=== PATIENT | female | born 1950 | race Caucasian/White ===

== ENCOUNTER → 2023-11-25 09:58 | Outpatient (REF) | payer BC, MEDICARE, SELFPAY ==
[2023-11-25 11:09] LABS: Urine Albumin Negative (Neg - Trace); Urine Bilirubin Negative (Negative); Urine Character Clear (Clear); Urine Color Straw; Urine Glucose Negative (Negative); Urine Ketone Negative (Negative); Urine Leukocyte 1+ (Negative); Urine Nitrite Negative (Negative); Urine Occult Blood Negative (Negative); Urine Urobilinogen Negative (Neg - 1+)
[2023-11-25 11:26] LABS: Urine Bacteria Few (Negative); Urine Red Blood Cell 0-2 /HPF (0-2); Urine Squamous Cell 21-25 /LPF (Few)
[2023-11-25 11:35] LABS: ALT (SGPT) 19 U/L (0-35); AST (SGOT) 27 U/L (14-36); Albumin 4.1 g/dl (3.5-5.0); Alkaline Phosphatase 51 U/L (38-126); Blood Urea Nitrogen 19 mg/dl (7-17); Calcium 9.2 mg/dl (8.4-10.2); Carbon Dioxide 28 mmol/L (22-30); Chloride 101 mmol/L (98-107); Glucose 95 mg/dl (70-99); HDL Cholesterol 78 mg/dl; LDL Cholesterol, Calculated 82 mg/dl; Potassium 4.6 mmol/L (3.5-5.1); Sodium 135 mmol/L (135-145); Total Bilirubin 0.7 mg/dl (0.2-1.3); Total Cholesterol 173 mg/dl (50-199); Total Protein 6.2 g/dl (6.3-8.2); Triglyceride 67 mg/dl (10-149); Very Low Density Lipoprotein 13 mg/dl (0-30); eGFR > 60.00
[2023-11-25 13:07] LABS: % Basophils 0.9 % (0-2); % Eosinophils 3.2 % (0-6); % Immature Granulocytes 0.5 % (0-0.5); % Lymphocytes 26.5 % (20.5-51.1); % Monocytes 13.6 % (1.7-9.3); % Neutrophils 55.3 % (42.2-75.2); Absolute Eosinophils 0.1 10^3/uL (0-0.7); Absolute Lymphocytes 1.2 10^3/uL (1.2-3.4); Absolute Monocytes 0.6 10^3/uL (0.1-0.6); Absolute Neutrophils 2.4 10^3/uL (1.4-6.5); Hematocrit 39.2 % (37.0-47.0); Hemoglobin 13.4 g/dL (12.0-16.0); Mean Corp Hgb Conc. 34.2 g/dL (33.0-37.0); Mean Corpuscular Hgb 32.5 pg (27.0-31.0); Mean Corpuscular Volume 95.1 fL (81.0-99.0); Mean Platelet Volume 10.1 fL (7.4-10.4); Nucleated Red Blood Cells % 0 %; Platelet Count 222 10^3/uL (130-400); Red Blood Cell Count 4.12 10^6/uL (4.20-5.40); Red Cell Dist. Width 12.4 % (11.5-14.5); White Blood Cell Count 4.3 10^3/uL (4.8-10.8)
== END ==
LOC: REG 09:58
PROVIDERS: ATTENDING PHYSICIAN Internal Medicine
DX: I10 Essential (primary) hypertension (principal); E78.00 Pure hypercholesterolemia, unspecified
CPT/HCPCS: 36415; 80053; 80061; 81003; 81015; 85025

== ENCOUNTER → 2024-04-25 10:40 | Outpatient (REF) | payer BC, MEDICARE, SELFPAY | LOC: WDC 10:40 | PROVIDERS: ATTENDING PHYSICIAN Obstetrics & Gynecology; FAMILY PHYSICIAN Internal Medicine | DX: Z12.31 Encounter for screening mammogram for malignant neoplasm of breast (principal) | CPT/HCPCS: 77063; 77067 ==

== ENCOUNTER → 2024-05-04 08:59 | Outpatient (REF) | payer MEDICARE, BC, SELFPAY | LOC: WDC 08:59 | PROVIDERS: ATTENDING PHYSICIAN Obstetrics & Gynecology; FAMILY PHYSICIAN Internal Medicine | DX: R92.8 Other abnormal and inconclusive findings on diagnostic imaging of breast (principal) | CPT/HCPCS: 76642 ==

== ENCOUNTER 2024-11-07 13:53 | Emergency (ER) | payer MEDICARE, SELFPAY ==
[2024-11-07 13:56] VITALS: BP 137/85
--- NOTE | 2024-11-07 16:45 | ED.MUSCINJ ---
HPI-Injury
General
Chief Complaint: Fall
Source: patient
Exam Limitations: none
Time Seen by Provider: 11/07/24 15:39
Nursing documentation reviewed up to this point in time: agreed with
History of Present Illness-Injury
Initial Injury comments:
73-year-old female with history of HTN, HLD presents with left rib pain after a fall yesterday. She states she was showing a house and missed a step down, 1 step and slammed the left side of her ribs into a doorknob, she did not fall. She has had
significant pain in the area since
She had a recent cough and finished 5 days of azithromycin 5 days ago and she still has some residual cough obviously causing significant pain
Past History
Past History
ED Past Medical History: Cancer (Skin CA), HTN, Hypercholesterolemia and Other (PNA, )
ED Past Surgical History: Gynecological (Tubal)
Social History
Tobacco: Former smoker
Alcohol: Daily (Gin 1 glass)
Personal:
Living: with family
Review of Systems
Review of Systems
Allergies reviewed?: Yes
All Other Systems: ROS reviewed and negative except as documented in HPI and ROS
Constitutional: Denies fever
Respiratory: Reports cough; Denies trouble breathing
Cardiac: Denies chest pain
ABD/GI: Denies abdominal pain
Musculoskeletal: Reports back pain (left mid back)
Skin: Reports no symptoms
Neurological: Reports no symptoms
Phy Exam
Physical Exam
Physical Exam:
GENERAL: No acute distress. A&Ox3.
CONSTITUTIONAL: Afebrile.
RESPIRATORY: Regular respirations, nonlabored, lungs clear.
CARDIOVASCULAR: Regular rate and rhythm, no murmurs, no rubs.
GI: Soft, nontender, normal BS
MUSCULOSKELETAL: No spinal bony tenderness. Tender to palpate over left posterior mid ribs. Moves with ease. Well perfused.
SKIN: Warm, dry, pink
PSYCH: Normal mood and affect. Well kept, interactive and appropriate
NEUROLOGIC: Awake, alert and oriented. No focal neurological deficits
Injury Course
Orders/Labs/Results
Orders:
Orders
11/07/24 13:58
Ribs, Left 3 View W/PA Chest CR [CR Ribs-left 3 Vw W/pa Chest] Urgent
Comment:
Reason For Exam: Fall/posterior rib pain
11/07/24 16:[address] Non Medication Order As Directed
Physician Order: Incentive Spirometer
Above order entered?: Yes
MDM/Problems Addressed
Differential Diagnosis Includes:
Rib fracture, contusion, hemo/pneumothorax
MDM/Problems Addressed:
73-year-old female with history of HTN, HLD presents with left rib pain after a fall yesterday. She states she was showing a house and missed a step down, 1 step and slammed the left side of her ribs into a doorknob, she did not fall. She has had
significant pain in the area since
She had a recent cough and finished 5 days of azithromycin 5 days ago and she still has some residual cough obviously causing significant pain
Afebrile, NAD
Rib x-rays reviewed, radiology report read: Nondisplaced fractures of ribs 8 and 9, no pneumo or hemothorax.
Rib belt applied with stated comfort.
Prescription for tramadol sent to patient's pharmacy
*Pulse Oximetry
SaO2: 98
Oxygen Mode of Delivery: Room air
Patient hypoxic: no
*Critical Care Note
Total Time (30-74mins, 75-104mins- exclusive of procedures): Not Applicable
ED Attending Note
-
Portions of this chart may have been created with voice recognition software.� Occasional wrong word or��sound alike� substitutions may have occurred due to the inherent limitations of voice recognition software.
Discharge Plan
Departure
Patient Disposition: Home (Routine Discharge)
Date of Disposition: 11/07/24
Time of Disposition: 16:45
Patient with high blood pressure during this ER visit?: No
Condition: Good
Discharge Problem:
Fracture of left ninth rib, Fracture of left eighth rib, Fall from slip, trip, or stumble
Instructions: Rib fracture or bruised rib - ED discharge instructions
Prescriptions:
New
tramadol 50 mg tablet
50 mg PO Q6H PRN (Reason: Pain) Qty: 20 0RF
Referrals:
Seth Sharif MD [Family Provider, Internal Medicine] - As needed
Activity Restrictions/Additional Instructions:
As we discussed, I sent a prescription to your pharmacy for Tramadol
Ibuprofen 600 mg, with food, every 6 hours or Tylenol as needed for mild to moderate pain and use of Tramadol if needed for worse pain.
Do not drive or operate any machinery within 8 hours of taking the tramadol as it is a narcotic and can make you sleepy and slow the reflexes.
Wear the rib belt as needed for comfort/support
Use the incentive spirometer, 10 breaths every hour while awake for as long as you are wearing the rib belt.
Interventions
Interventions:
*Risk Screen - Suicide Last Done: 11/07/24 13:56
*General Assessment Last Done: 11/07/24 15:03
*Neglect/Abuse Screening Last Done: 11/07/24 13:56
*ED- Fall Risk Assessment Last Done: 11/07/24 15:03
*ED COVID-19 Vaccine History Last Done: 11/07/24 15:03
*Nursing Disposition Last Done: 11/07/24 17:03
ED-Musculoskeletal Assessment Last Done: 11/07/24 15:02
ED- Neurological Assessment Last Done: 11/07/24 15:02
ED-Skin Assessment Last Done: 11/07/24 15:02
Discharge Date and Time
Discharge Date/Time: 11/07/24 17:07
Print Language: PUERTO RICAN
[2024-11-07 17:02] VITALS: BP 131/79
== END 2024-11-07 17:07 | disposition home or self-care (01) ==
LOC: EMR 13:53
PROVIDERS: EMERGENCY PHYSICIAN Emergency Medicine; FAMILY PHYSICIAN Internal Medicine
DX: S22.42XA Multiple fractures of ribs, left side, initial encounter for closed fracture (principal); W01.0XXA Fall on same level from slipping, tripping and stumbling without subsequent striking against object, initial encounter; I10 Essential (primary) hypertension; E78.00 Pure hypercholesterolemia, unspecified; Z87.891 Personal history of nicotine dependence
CPT/HCPCS: 99283; 71101

== ENCOUNTER → 2024-11-27 09:25 | Outpatient (REF) | payer MEDICARE, SELFPAY ==
[2024-11-27 10:12] LABS: Urine Character Clear (Clear)
[2024-11-27 10:39] LABS: Hematocrit 38.8 % (37.0-47.0); Hemoglobin 13.0 g/dL (12.0-16.0); Mean Corp Hgb Conc. 33.5 g/dL (33.0-37.0); Mean Corpuscular Volume 96.3 fL (81.0-99.0); Nucleated Red Blood Cells % 0 %; Platelet Count 261 10^3/uL (130-400); Red Cell Dist. Width 12.7 % (11.5-14.5)
[2024-11-27 11:04] LABS: ALT (SGPT) 19 U/L (0-35); AST (SGOT) 25 U/L (14-36); Albumin 4.2 g/dl (3.5-5.0); Alkaline Phosphatase 69 U/L (38-126); Blood Urea Nitrogen 20 mg/dl (7-17); Calcium 9.4 mg/dl (8.4-10.2); Carbon Dioxide 30 mmol/L (22-30); Chloride 104 mmol/L (98-107); Glucose 94 mg/dl (70-99); HDL Cholesterol 83 mg/dl; LDL Cholesterol, Calculated 72 mg/dl; Potassium 4.6 mmol/L (3.5-5.1); Sodium 134 mmol/L (135-145); Total Protein 6.6 g/dl (6.3-8.2); Very Low Density Lipoprotein 8 mg/dl (0-30); eGFR > 60.00
[2024-11-27 13:05] LABS: Urine Squamous Cell 0-2 /LPF (Few)
[2024-11-27 13:06] LABS: Urine Red Blood Cell 0-2 /HPF (0-2)
== END ==
LOC: REG 09:25
PROVIDERS: ATTENDING PHYSICIAN Internal Medicine
DX: I10 Essential (primary) hypertension (principal); E78.5 Hyperlipidemia, unspecified
CPT/HCPCS: 36415; 80053; 80061; 81003; 81015; 85025

== ENCOUNTER → 2025-03-05 08:14 | Outpatient (REF) | payer MEDICARE, BC, SELFPAY | LOC: HWRCS 08:14 | PROVIDERS: ATTENDING PHYSICIAN Nuclear Medicine Nuclear Cardiology; FAMILY PHYSICIAN Internal Medicine | DX: I10 Essential (primary) hypertension (principal) | CPT/HCPCS: 93306 ==

== ENCOUNTER 2025-03-17 06:20 | Day surgery (SDC) | payer MEDICARE, BC, SELFPAY ==
--- NOTE | 2025-03-01 10:33 | CM ---
Addendum entered by Jasmyne Ramriez RN 03/01/25 15:31:
Demographics: confirmed
Living situation:lives with who is disabled.
Support Person Post Operatively: Daughter Carmela will be available to help.
History of
VN: No
SNF: No
Outpatient : [facility] appointment made 03/22
Has patient purchased required equipment: yes
PCP: active
Pharmacy: [facility]
Post Operative Discharge Plan: ARVINN, KATHRYN.
CM had extended conversation regarding anesthesia and patient's anxiety. CM will remain available as needed.
Addendum entered by Jasmyne Ramirez RN 03/01/25 10:34:
CM left message for patient for orthopedic IA.
Original Note:
Late Note
CM spoke with patient regarding obtaining a bed for her . CM emailed DME options to patient.
[2025-03-02 13:58] VITALS: BMI 20.1
[2025-03-02 14:23] LABS: Hematocrit 39.1 % (37.0-47.0); Hemoglobin 13.4 g/dL (12.0-16.0); Mean Corp Hgb Conc. 34.3 g/dL (33.0-37.0); Mean Corpuscular Volume 96.8 fL (81.0-99.0); Platelet Count 255 10^3/uL (130-400); Red Cell Dist. Width 12.3 % (11.5-14.5)
[2025-03-02 14:58] LABS: ALT (SGPT) 24 U/L (0-35); AST (SGOT) 26 U/L (14-36); Albumin 4.5 g/dl (3.5-5.0); Alkaline Phosphatase 49 U/L (38-126); Blood Urea Nitrogen 20 mg/dl (7-17); Calcium 9.3 mg/dl (8.4-10.2); Carbon Dioxide 28 mmol/L (22-30); Chloride 98 mmol/L (98-107); Estimated Creatinine Clearance 67 ml/min; Glucose 86 mg/dl (70-99); Potassium 4.3 mmol/L (3.5-5.1); Sodium 132 mmol/L (135-145); Total Protein 6.9 g/dl (6.3-8.2); eGFR > 60.00
[2025-03-03 08:39] LABS: Glycohemoglobin (HgbA1c) 5.1 % (4.0-5.6)
--- NOTE | 2025-03-03 09:16 | VNURNOTE ---
Patient is scheduled for an elective R BEV on 03/17 - She is a same day patient with Dr Gonzalez. Spoke with patient prior to surgery. Introduced role of [facility] Liaison. Patient reports that she lives with her spouse. Her spouse has Parkinsons and she
is his primary caregiver. She is working hard on finding caregivers to help him while she is recuperating post op.
She has a rollator and rolling walker.
PCP is Dr Seth Sharif
Discussed [facility] joint protocol and post surgical plans.
Reviewed that she will have VN services initially and will then start outpatient PT.
Patient selects [facility] for home care needs and will go to [facility] for outpatient PT. Scheduled for 03/22 .
Patient is in agreement with plan and states that her daughter will be home with her for 1-2 days. Advised to bring RW with her day of surgery. Referral accepted in [facility].
Plan: [facility] per [facility] joint protocol 03/17 then outpt PT on 03/22
[2025-03-03 16:41] VITALS: BMI 20.1
[2025-03-17] VITALS (13 sets, daily range): BP systolic 102–157; BP diastolic 62–81; PULSE 60; O2SAT 97
[2025-03-17] MEDS: CELEBREX 200 MG PO (08:28)
[2025-03-17] MEDS: TYLENOL 650 MG PO (08:28)
[2025-03-17] MEDS: NORMOSOL-R/PLASMALYTE-A 1000 IV (08:39)
[2025-03-17] MEDS: DILAUDID 0.25 MG IV ×2 (11:14→11:31)
[2025-03-17] MEDS: ANCEF 5 IV (13:38)
== END 2025-03-17 14:39 | disposition home health service (06) ==
LOC: SDS 06:20
PROVIDERS: ATTENDING PHYSICIAN Orthopaedic Surgery; FAMILY PHYSICIAN Internal Medicine; OTHER PHYSICIAN Internal Medicine Cardiovascular Disease; OTHER PHYSICIAN Physician Assistant
DX: M16.11 Unilateral primary osteoarthritis, right hip (principal)
CPT/HCPCS: 27130; C1713; C1776; 36415; 73502; 80053; 83036; 85027; 87070; 97116; 97162

== ENCOUNTER → 2025-04-27 13:43 | Outpatient (REF) | payer MEDICARE, BC, SELFPAY | LOC: WDC 13:43 | PROVIDERS: ATTENDING PHYSICIAN Obstetrics & Gynecology; FAMILY PHYSICIAN Internal Medicine | DX: Z12.31 Encounter for screening mammogram for malignant neoplasm of breast (principal) | CPT/HCPCS: 77063; 77067 ==